=== PATIENT | female | born 1950 | race Asian ===

== ENCOUNTER 2025-04-10 15:46 | Inpatient (IN) | payer OTHER ==
[2025-04-10] VITALS (12 sets, daily range): BP systolic 105–156; BP diastolic 55–68; PULSE 48–81; RESP 24–25; TEMP 93.6–94.8; O2SAT 89–100
[~2025-04-10] VITALS: Ht 160 cm; Wt 65.8 kg
[~2025-04-10 15:46] MED LIST: AMLO10TA55 PO; APIX2.5T PO; ASPI-1450 PO; ERGO500093 PO; HEPARIN SODIUM,PORCINE 1,000 UNITS/ML VIAL ONE; HYDR100T15 PO; LABE200T58 PO; OMEP-148 PO; SEVE800T7 PO; SIMV-261 PO; SODI5POW3 PO; SODI650T33 PO
[2025-04-10] MEDS ORDERED: GLIP-300 PO (15:55)
[2025-04-10] MEDS ORDERED: ATOR40TA71 PO (15:55)
[2025-04-10] MEDS ORDERED: LABE300T80 PO (15:55)
[2025-04-10] MEDS ORDERED: NIFE-78 PO (15:55)
[2025-04-10] MEDS ORDERED: NIFE-129 PO (15:55)
[2025-04-10] MEDS ORDERED: FURO20TA4 PO (15:55)
[2025-04-10] MEDS ORDERED: SODI650T PO (15:55)
[2025-04-10] MEDS ORDERED: GABA-529 PO (15:55)
[2025-04-10] MEDS ORDERED: SODI15OR PO (15:55)
[2025-04-10] MEDS ORDERED: SIMV-46 PO (15:55)
[2025-04-10] MEDS ORDERED: SEVE800T27 PO (15:55)
[2025-04-10 16:43] LABS: PLATELET COUNT (AUTO) 185 K/uL (150-450); RED BLOOD CELL COUNT(AUTO) 2.95 MIL/uL (4.00-5.20); RED CELL DISTRIBUTION WIDTH 15.3 % (11.5-14.5); WHITE BLOOD COUNT (AUTO) 4.6 K/uL (4.5-11.0)
[2025-04-10 16:56] LABS: ASPARTATE AMINOTRANSFERASE 14 U/L (15-37); CALCIUM, TOTAL 8.5 mg/dL (8.8-10.5); CREATINE KINASE, TOTAL ONLY 109 U/L (26-192); CREATININE 4.76 mg/dL (0.60-1.30); GLOMERULAR FILTR. RATE CALC 9 mL/min (>60); GLUCOSE,RANDOM 261 mg/dL (70-110); TOTAL PROTEIN, SERUM 6.4 g/dL (6.4-8.2); UREA NITROGEN, BLOOD 57 mg/dL (7-18)
[2025-04-10] MEDS: DOPamine 400MG/D5W[STANDARD] 250 ML IV PRN (17:03)
[2025-04-10] MEDS: SODIUM CHLORIDE 0.9% 1,000 ML IV ONE (17:03)
[2025-04-10 17:04] LABS: SODIUM SERUM 143 mmol/L (136-145); TROPONIN I-HIGH SENSITIVITY 12 ng/L (<51)
[2025-04-10 17:04] LABS: APPEARANCE,URINE CLEAR (CLEAR); GLUCOSE, URINE (UA) 300-500 mg/dL (NEGATIVE); LEUKOCYTE ESTERASE ,URINE NEGATIVE (NEGATIVE); NITRATE,URINE NEGATIVE (NEGATIVE); OCCULT BLOOD,URINE NEGATIVE (NEGATIVE); SPECIFIC GRAVITIY, URINE 1.014 (1.003-1.030)
[2025-04-10] MEDS: PROPOFOL 1000 MG/ISO-OSM 100 ML IV PRN (17:04)
[2025-04-10] MEDS: AMPICILLIN SODIUM/SULBACTAM NA 3 GM in SODIUM CHLORIDE 0.9% 100 ML IV ONE (17:05)
[2025-04-10 17:07] LABS: LACTIC ACID 1.9 mmol/L (0.4-2.0)
[2025-04-10 17:16] LABS: SULFOSALICYLIC ACID,URINE 1+ (Negative)
[2025-04-10 17:17] LABS: AMORPHOUS SEDIMENT,UR Few /LPF (None Seen); SQUAMOUS EPITHELIAL CELL,UR Few /LPF (None Seen)
[2025-04-10] MEDS: DEXTROSE 50%-WATER 25 GM/50 ML SYRINGE IVP ONE (17:21)
[2025-04-10] MEDS: INSULIN REGULAR, HUMAN 100 UNITS/ML IVP ONE (17:21)
[2025-04-10] MEDS ORDERED: NOREPINEPHRINE 8 MG/0.9 % NACL 250 ML IV PRN (17:30)
[2025-04-10 17:37] LABS: ABG A-A DIFF O2 461.9 mmHg (10-20.0); ABG BASE EXCESS -14.2 mmol/L (-2.0-3.0); ABG CARBOXYHEMOGLOBIN 0.6 % (0.5-1.5); ABG HCO3 14.1 mmol/L (21.0-28.0); ABG METHEMOGLOBIN 1.3 % (0.0-1.5); ABG OXYGEN CONTENT 11.4 mL/dL (15.0-23.0); ABG OXYGEN SATURATION 99.5 % (94.0-98.0); ABG OXYHEMOGLOBIN 97.6 % (94.0-98.0); ABG PCO2 29 mmHg (32.0-45.0); ABG PH 7.261 (7.350-7.450); ABG TOTAL HEMOGLOBIN 7.9 G/dL (12.0-16.0); FRACTIONATED INSPIRED OXYGEN 100.0 % (21-100.0); O2 DEVICE,BLOOD GAS VENTILATOR (ROOM AIR); PATIENT RATE, BG 25.0 min.; PEEP,BG 5 cm H2O; PO2, ARTERIAL BG 224.5 mmHg (83.0-108.0); SET RATE, BG 24.0 min.; SITE, BLOOD GAS RT BRACHIAL; SOURCE, BLOOD GAS ARTERIAL; TEMPERATURE, FAHRENHEIT, BG 96.6 FAHREN (96.0-98.6); VT, ABG 350 ml
[2025-04-10] MEDS: FentaNYL CIT 1000MCG/0.9% NACL 100 ML IV PRN (17:44)
[2025-04-10] MEDS: SODIUM ZIRCONIUM CYCLOSILICATE 10 GM POWDER PACKET PO ONE (18:07)
[2025-04-10] MEDS: SODIUM BICARBONATE 75 MEQ in SODIUM CHLORIDE 0.45% 1,000 ML IV SCH (20:05)
[2025-04-10 21:09] LABS: CALCIUM, TOTAL 8.4 mg/dL (8.8-10.5); CREATININE 5.09 mg/dL (0.60-1.30); GLOMERULAR FILTR. RATE CALC 8.0 mL/min (>60); GLUCOSE,RANDOM 213.0 mg/dL (70-110); SODIUM SERUM 141.0 mmol/L (136-145); UREA NITROGEN, BLOOD 59.0 mg/dL (7-18)
[2025-04-10] MEDS ORDERED: MORPHINE SULFATE 4 MG/ML SYRINGE IVP PRN (22:00)
[2025-04-10] MEDS ORDERED: ALBUTEROL SULFATE 2.5 MG/0.5 ML NEB SOLUTION NEB PRN (22:00)
[2025-04-10] MEDS ORDERED: GLUCAGON,HUMAN RECOMBINANT 1 MG VIAL IM PRN (22:00)
[2025-04-10] MEDS ORDERED: DEXTROSE 50%-WATER 25 GM/50 ML SYRINGE IVP PRN (22:30)
[2025-04-11] VITALS (24 sets, daily range): BP systolic 125–177; BP diastolic 66–109; PULSE 76–134; RESP 24–39; TEMP 95.3–101.1; O2SAT 24–100
[2025-04-11] MEDS: HEPARIN SODIUM,PORCINE 5,000 UNITS/ML VIAL SQ SCH (00:20)
[2025-04-11 00:49] LABS: GLOMERULAR FILTR. RATE CALC 19.0 mL/min (>60); SODIUM SERUM 142.0 mmol/L (136-145)
[2025-04-11 00:59] LABS: CALCIUM, TOTAL 8.3 mg/dL (8.8-10.5); CREATININE 2.5 mg/dL (0.60-1.30); GLUCOSE,RANDOM 145.0 mg/dL (70-110); UREA NITROGEN, BLOOD 27.0 mg/dL (7-18)
[2025-04-11 06:04] LABS: PLATELET COUNT (AUTO) 164 K/uL (150-450); RED BLOOD CELL COUNT(AUTO) 2.68 MIL/uL (4.00-5.20); RED CELL DISTRIBUTION WIDTH 14.2 % (11.5-14.5); WHITE BLOOD COUNT (AUTO) 6.8 K/uL (4.5-11.0)
[2025-04-11 06:20] LABS: CALCIUM, TOTAL 7.7 mg/dL (8.8-10.5); CREATININE 3.02 mg/dL (0.60-1.30); GLOMERULAR FILTR. RATE CALC 15.0 mL/min (>60); GLUCOSE,RANDOM 79.0 mg/dL (70-110); SODIUM SERUM 141.0 mmol/L (136-145); UREA NITROGEN, BLOOD 28.0 mg/dL (7-18)
[2025-04-11 06:23] LABS: PHOSPHORUS 4.2 mg/dL (2.5-4.9)
[2025-04-11 07:00] LABS: GLUCOMETER DEV NAME(LOC) ICU.S7; GLUCOSE,POINT OF CARE 67 MG/DL (70-110)
[2025-04-11] MEDS: PANTOPRAZOLE SODIUM 40 MG/VIAL IVP SCH (08:15)
[2025-04-11] MEDS: MAGNESIUM HYDROXIDE SUSPENSION 30 ML UDCUP NG PRN (08:15)
[2025-04-11] MEDS: ATORVASTATIN CALCIUM 40 MG TABLET NG SCH (08:15)
[2025-04-11] MEDS: EPOETIN ALFA 10,000 UNITS/ML VIAL SQ SCH (09:22)
[2025-04-11 12:26] LABS: GLUCOMETER DEV NAME(LOC) ICUN.7; GLUCOSE,POINT OF CARE 94 MG/DL (70-110)
[2025-04-11] MEDS: HEPARIN SODIUM,PORCINE 1,000 UNITS/ML VIAL IVCATH PRN ×2 (12:57)
[2025-04-11 13:12] LABS: CALCIUM, TOTAL 8.1 mg/dL (8.8-10.5); CREATININE 1.67 mg/dL (0.60-1.30); GLOMERULAR FILTR. RATE CALC 30.0 mL/min (>60); GLUCOSE,RANDOM 98.0 mg/dL (70-110); SODIUM SERUM 137.0 mmol/L (136-145); UREA NITROGEN, BLOOD 12.0 mg/dL (7-18)
[2025-04-11] MEDS: ACETAMINOPHEN 325 MG TABLET PO PRN (15:05)
[2025-04-11] MEDS: AMIODARONE HCL 150 MG in DEXTROSE 5%-WATER 97 ML IV ONE (18:05)
[2025-04-11] MEDS: AMIODARONE HCL 360 MG in DEXTROSE 5%-WATER 242.8 ML IV ONE (18:32)
[2025-04-11 18:45] LABS: GLUCOMETER DEV NAME(LOC) ICUN.7; GLUCOSE,POINT OF CARE 146 MG/DL (70-110)
[2025-04-11] MEDS: AMIODARONE HCL 540 MG in DEXTROSE 5%-WATER 250 ML IV ONE (22:59)
[2025-04-11 23:01] LABS: GLUCOMETER DEV NAME(LOC) ICUN.7; GLUCOSE,POINT OF CARE 114 MG/DL (70-110)
[2025-04-12] VITALS (16 sets, daily range): BP systolic 128–172; BP diastolic 50–69; PULSE 60–99; RESP 9–32; TEMP 97.8–99.8; O2SAT 77–100
[2025-04-12 05:43] LABS: CALCIUM, TOTAL 7.7 mg/dL (8.8-10.5); CREATININE 2.48 mg/dL (0.60-1.30); GLOMERULAR FILTR. RATE CALC 19.0 mL/min (>60); GLUCOSE,RANDOM 121.0 mg/dL (70-110); SODIUM SERUM 137.0 mmol/L (136-145); UREA NITROGEN, BLOOD 21.0 mg/dL (7-18)
[2025-04-12 05:44] LABS: PLATELET COUNT (AUTO) 149 K/uL (150-450); RED BLOOD CELL COUNT(AUTO) 2.89 MIL/uL (4.00-5.20); RED CELL DISTRIBUTION WIDTH 14.3 % (11.5-14.5); WHITE BLOOD COUNT (AUTO) 10.8 K/uL (4.5-11.0)
[2025-04-12 06:01] LABS: GLUCOMETER DEV NAME(LOC) ICUN.7; GLUCOSE,POINT OF CARE 110 MG/DL (70-110)
[2025-04-12] MEDS: DEXMEDETOMIDINE 400 MCG/NS 100 ML IV PRN (08:20)
[2025-04-12 11:07] LABS: ABG BASE EXCESS -6.3 mmol/L (-2.0-3.0); ABG CARBOXYHEMOGLOBIN 0.3 % (0.5-1.5); ABG HCO3 19.7 mmol/L (21.0-28.0); ABG METHEMOGLOBIN 0.3 % (0.0-1.5); ABG OXYGEN CONTENT 11.5 mL/dL (15.0-23.0); ABG OXYGEN SATURATION 98.4 % (94.0-98.0); ABG OXYHEMOGLOBIN 97.8 % (94.0-98.0); ABG PCO2 35 mmHg (32.0-45.0); ABG PH 7.357 (7.350-7.450); ABG TOTAL HEMOGLOBIN 8.2 G/dL (12.0-16.0); ALLEN TEST, BLOOD GAS Positive; FRACTIONATED INSPIRED OXYGEN 30.0 % (21-100.0); PO2, ARTERIAL BG 124.6 mmHg (83.0-108.0); SITE, BLOOD GAS RT RADIAL; SOURCE, BLOOD GAS ARTERIAL; TEMPERATURE, FAHRENHEIT, BG 97.8 FAHREN (96.0-98.6)
[2025-04-12 11:08] LABS: ABG A-A DIFF O2 49.0 mmHg (10-20.0); O2 DEVICE,BLOOD GAS VENTILATOR (ROOM AIR); PATIENT RATE, BG 14.0 min.; VENT MODE, BG SPONTANEOUS (ROOM AIR)
[2025-04-12 11:09] LABS: CPAP, BG 5 cm H2O; PRESSURE SUPPORT, BG 8 cm H2O; SPONTANEOUS VT, BG 824 ml
[2025-04-12 14:21] LABS: GLUCOMETER DEV NAME(LOC) ICU.S7; GLUCOSE,POINT OF CARE 127 MG/DL (70-110)
[2025-04-12] MEDS: AMIODARONE HCL 750 MG in DEXTROSE 5%-WATER 485 ML IV SCH (16:13)
[2025-04-12 17:35] LABS: GLUCOMETER DEV NAME(LOC) ICUN.7; GLUCOSE,POINT OF CARE 132 MG/DL (70-110)
[2025-04-13] VITALS (10 sets, daily range): BP systolic 142–170; BP diastolic 59–119; PULSE 59–95; RESP 10–26; TEMP 98–100.3; O2SAT 95–100
[2025-04-13 00:45] LABS: GLUCOMETER DEV NAME(LOC) ICUN.7; GLUCOSE,POINT OF CARE 114 MG/DL (70-110)
[2025-04-13 06:45] LABS: GLUCOMETER DEV NAME(LOC) ICU.S7; GLUCOSE,POINT OF CARE 112 MG/DL (70-110)
[2025-04-13 09:26] LABS: PLATELET COUNT (AUTO) 120 K/uL (150-450); RED BLOOD CELL COUNT(AUTO) 2.93 MIL/uL (4.00-5.20); RED CELL DISTRIBUTION WIDTH 14.4 % (11.5-14.5); WHITE BLOOD COUNT (AUTO) 11.1 K/uL (4.5-11.0)
[2025-04-13 09:27] LABS: CALCIUM, TOTAL 7.5 mg/dL (8.8-10.5); CREATININE 3.43 mg/dL (0.60-1.30); GLOMERULAR FILTR. RATE CALC 13.0 mL/min (>60); GLUCOSE,RANDOM 126.0 mg/dL (70-110); SODIUM SERUM 132.0 mmol/L (136-145); UREA NITROGEN, BLOOD 35.0 mg/dL (7-18)
[2025-04-13 09:31] LABS: PHOSPHORUS 5.7 mg/dL (2.5-4.9)
[2025-04-13 09:38] LABS: ABG A-A DIFF O2 59.4 mmHg (10-20.0); ABG BASE EXCESS -4.8 mmol/L (-2.0-3.0); ABG CARBOXYHEMOGLOBIN 0.3 % (0.5-1.5); ABG HCO3 20.7 mmol/L (21.0-28.0); ABG METHEMOGLOBIN 0.1 % (0.0-1.5); ABG OXYGEN CONTENT 11.4 mL/dL (15.0-23.0); ABG OXYGEN SATURATION 97.5 % (94.0-98.0); ABG OXYHEMOGLOBIN 97.1 % (94.0-98.0); ABG PCO2 41 mmHg (32.0-45.0); ABG PH 7.329 (7.350-7.450); ABG TOTAL HEMOGLOBIN 8.2 G/dL (12.0-16.0); ALLEN TEST, BLOOD GAS Positive; FRACTIONATED INSPIRED OXYGEN 30.0 % (21-100.0); O2 DEVICE,BLOOD GAS VENTILATOR (ROOM AIR); PATIENT RATE, BG 12.0 min.; PO2, ARTERIAL BG 106.4 mmHg (83.0-108.0); SITE, BLOOD GAS RT RADIAL; SOURCE, BLOOD GAS ARTERIAL; TEMPERATURE, FAHRENHEIT, BG 98.4 FAHREN (96.0-98.6); VENT MODE, BG CPAP (ROOM AIR)
[2025-04-13 09:39] LABS: CPAP, BG 5 cm H2O; PRESSURE SUPPORT, BG 8 cm H2O; SPONTANEOUS VT, BG 545 ml
[2025-04-13] MEDS: AMIODARONE HCL 200 MG TABLET PO SCH (11:00)
[2025-04-13] MEDS ORDERED: SODIUM CHLORIDE 0.9% 250 ML IV ONE (12:19)
[2025-04-13] MEDS: ACETAMINOPHEN 1000 MG/ISO-OSM 100 ML IV ONE (12:21)
[2025-04-13 13:25] LABS: GLUCOMETER DEV NAME(LOC) ICUN.7; GLUCOSE,POINT OF CARE 137 MG/DL (70-110)
[2025-04-13] MEDS: ONDANSETRON HCL 4 MG/2 ML VIAL IVP PRN (14:14)
[2025-04-13] MEDS: CefTRIAXone 1 GM/DEXTROSE 50 ML IV SCH (14:16)
[2025-04-13] MEDS: AZITHROMYCIN 500 MG/NS 250 ML IV SCH (16:18)
[2025-04-13] MEDS: SEVELAMER CARBONATE 800 MG TABLET PO SCH (16:20)
[2025-04-13 22:31] LABS: GLUCOMETER DEV NAME(LOC) ICU.S7; GLUCOSE,POINT OF CARE 142 MG/DL (70-110)
[2025-04-14] VITALS (15 sets, daily range): BP systolic 160–190; BP diastolic 62–89; PULSE 70–116; RESP 12–24; TEMP 97.2–100.3; O2SAT 95–100
[2025-04-14 00:31] LABS: GLUCOMETER DEV NAME(LOC) ICU.S7; GLUCOSE,POINT OF CARE 131 MG/DL (70-110)
[2025-04-14] MEDS: LABETALOL HCL 5 MG/ML 20 ML VIAL IVP ONE (02:09)
[2025-04-14 05:59] LABS: PLATELET COUNT (AUTO) 167 K/uL (150-450); RED BLOOD CELL COUNT(AUTO) 2.65 MIL/uL (4.00-5.20); RED CELL DISTRIBUTION WIDTH 13.7 % (11.5-14.5); WHITE BLOOD COUNT (AUTO) 8.8 K/uL (4.5-11.0)
[2025-04-14 06:14] LABS: CALCIUM, TOTAL 7.5 mg/dL (8.8-10.5); CREATININE 4.18 mg/dL (0.60-1.30); GLOMERULAR FILTR. RATE CALC 10.0 mL/min (>60); GLUCOSE,RANDOM 130.0 mg/dL (70-110); SODIUM SERUM 133.0 mmol/L (136-145); UREA NITROGEN, BLOOD 43.0 mg/dL (7-18)
[2025-04-14 06:21] LABS: GLUCOMETER DEV NAME(LOC) ICU.S7; GLUCOSE,POINT OF CARE 127 MG/DL (70-110)
[2025-04-14] MEDS ORDERED: SODIUM CHLORIDE 0.9% 1,000 ML ONE (08:47)
[2025-04-14] MEDS ORDERED: HEPARIN SODIUM,PORCINE 5,000 UNITS/ML VIAL IVP PRN ×2 (11:30)
[2025-04-14] MEDS: DIGOXIN 250 MCG/ML 2 ML AMP IVP ONE (11:32)
[2025-04-14] MEDS: HEPARIN SODIUM,PORCINE 5,000 UNITS/ML VIAL IVP ONE (11:35)
[2025-04-14 12:08] LABS: PLATELET COUNT (AUTO) 175 K/uL (150-450); RED BLOOD CELL COUNT(AUTO) 2.89 MIL/uL (4.00-5.20); RED CELL DISTRIBUTION WIDTH 13.8 % (11.5-14.5); WHITE BLOOD COUNT (AUTO) 8.7 K/uL (4.5-11.0)
[2025-04-14] MEDS ORDERED: SODIUM CHLORIDE 0.9% 250 ML IV ONE (12:31)
[2025-04-14] MEDS: HEPARIN SODIUM 25000 UNITS/D5W 250 ML IV PRN (12:34)
[2025-04-14 12:55] LABS: GLUCOMETER DEV NAME(LOC) ICU.S7; GLUCOSE,POINT OF CARE 113 MG/DL (70-110)
[2025-04-14] MEDS: INSULIN LISPRO 100 UNITS/ML SQ PRN (17:29)
[2025-04-14 17:45] LABS: GLUCOMETER DEV NAME(LOC) ICUN.7; GLUCOSE,POINT OF CARE 172 MG/DL (70-110)
[2025-04-15] VITALS (13 sets, daily range): BP systolic 157–180; BP diastolic 57–75; PULSE 65–71; RESP 16–20; TEMP 97–98.6; O2SAT 97–99
[2025-04-15 06:08] LABS: PLATELET COUNT (AUTO) 157 K/uL (150-450); RED BLOOD CELL COUNT(AUTO) 2.52 MIL/uL (4.00-5.20); RED CELL DISTRIBUTION WIDTH 13.7 % (11.5-14.5); WHITE BLOOD COUNT (AUTO) 5.4 K/uL (4.5-11.0)
[2025-04-15 06:11] LABS: GLUCOMETER DEV NAME(LOC) 5S.2E; GLUCOSE,POINT OF CARE 139 MG/DL (70-110)
[2025-04-15] MEDS ORDERED: HEPARIN SODIUM,PORCINE 1,000 UNITS/ML VIAL ONE (12:00)
[2025-04-15 12:31] LABS: GLUCOMETER DEV NAME(LOC) 5S.2E; GLUCOSE,POINT OF CARE 142 MG/DL (70-110)
[2025-04-15 12:31] LABS: GLUCOMETER DEV NAME(LOC) 5S.2E; GLUCOSE,POINT OF CARE 155 MG/DL (70-110)
[2025-04-15] MEDS ORDERED: SODIUM CHLORIDE 0.9% 0 ML ONE (14:45)
[2025-04-15] MEDS: FOLIC ACID/VIT B COMPLEX AND C TABLET PO SCH (18:31)
[2025-04-15] MEDS: SOD FERRIC GLUC COMPLX/SUCROSE 125 MG in SODIUM CHLORIDE 0.9% 100 ML IV SCH (20:57)
[2025-04-16] VITALS (15 sets, daily range): BP systolic 175–195; BP diastolic 60–87; PULSE 71–82; RESP 16–19; TEMP 97.7–99.1; O2SAT 95–97
[2025-04-16] MEDS: BISACODYL 10 MG RECTAL RECTAL SUPPOSITORY PR PRN (04:54)
[2025-04-16 05:45] LABS: GLUCOMETER DEV NAME(LOC) 5N.1D; GLUCOSE,POINT OF CARE 163 MG/DL (70-110)
[2025-04-16 06:01] LABS: GLUCOMETER DEV NAME(LOC) 5S.2E; GLUCOSE,POINT OF CARE 171 MG/DL (70-110)
[2025-04-16 06:14] LABS: PLATELET COUNT (AUTO) 175 K/uL (150-450); RED BLOOD CELL COUNT(AUTO) 3.50 MIL/uL (4.00-5.20); RED CELL DISTRIBUTION WIDTH 14.2 % (11.5-14.5); WHITE BLOOD COUNT (AUTO) 9.4 K/uL (4.5-11.0)
[2025-04-16 07:06] LABS: ASPARTATE AMINOTRANSFERASE 29.0 U/L (15-37); CALCIUM, TOTAL 7.7 mg/dL (8.8-10.5); CREATININE 3.73 mg/dL (0.60-1.30); GLOMERULAR FILTR. RATE CALC 12.0 mL/min (>60); GLUCOSE,RANDOM 166.0 mg/dL (70-110); SODIUM SERUM 131.0 mmol/L (136-145); TOTAL PROTEIN, SERUM 6.4 g/dL (6.4-8.2); UREA NITROGEN, BLOOD 33.0 mg/dL (7-18)
[2025-04-16] MEDS ORDERED: SODIUM CHLORIDE 0.9% 1,000 ML ONE (10:02)
[2025-04-16] MEDS ORDERED: HEPARIN SODIUM,PORCINE 1,000 UNITS/ML VIAL ONE (12:00)
[2025-04-16 14:16] LABS: GLUCOMETER DEV NAME(LOC) 5S.1E; GLUCOSE,POINT OF CARE 166 MG/DL (70-110)
[2025-04-16 14:16] LABS: GLUCOMETER DEV NAME(LOC) 5S.1E; GLUCOSE,POINT OF CARE 128 MG/DL (70-110)
[2025-04-16] MEDS: HEPARIN SODIUM,PORCINE 1,000 UNITS/ML VIAL IVCATH ONE ×2 (15:18)
[2025-04-16 18:35] LABS: GLUCOMETER DEV NAME(LOC) 5S.1E; GLUCOSE,POINT OF CARE 180 MG/DL (70-110)
[2025-04-17] VITALS (9 sets, daily range): BP systolic 159–239; BP diastolic 59–108; PULSE 73–89; RESP 18–19; TEMP 97.7–98.4; O2SAT 96–98
[2025-04-17 06:36] LABS: GLUCOMETER DEV NAME(LOC) 5N.2C; GLUCOSE,POINT OF CARE 136 MG/DL (70-110)
[2025-04-17] MEDS ORDERED: FentaNYL CITRATE PF 100 MCG/2 ML VIAL ONE (08:31)
[2025-04-17] MEDS ORDERED: MIDAZOLAM HCL 2 MG/2 ML VIAL ONE (08:31)
[2025-04-17] MEDS: MIDAZOLAM HCL 2 MG/2 ML VIAL IVP ONE (08:55)
[2025-04-17] MEDS: FentaNYL CITRATE PF 100 MCG/2 ML VIAL IVP ONE (08:55)
[2025-04-17] MEDS: LIDOCAINE 1% 30 ML/SOD BICARB 8.4% 4 ML SQ ONE (08:56)
[2025-04-17] MEDS: HEPARIN SODIUM,PORCINE 1,000 UNITS/ML 10 ML VIAL IVP ONE (09:02)
[2025-04-17 11:56] LABS: GLUCOMETER DEV NAME(LOC) 5S.2E; GLUCOSE,POINT OF CARE 177 MG/DL (70-110)
[2025-04-17 13:15] LABS: GLUCOMETER DEV NAME(LOC) 5N.2C; GLUCOSE,POINT OF CARE 200 MG/DL (70-110)
[2025-04-17] MEDS: AMIODARONE HCL 200 MG TABLET PO SCH (13:41)
[2025-04-17 17:26] LABS: GLUCOMETER DEV NAME(LOC) 5S.1E; GLUCOSE,POINT OF CARE 208 MG/DL (70-110)
[2025-04-18] VITALS (19 sets, daily range): BP systolic 173–197; BP diastolic 60–86; PULSE 72–93; RESP 16–18; TEMP 97.7–98.6; O2SAT 95–99
[2025-04-18 00:36] LABS: GLUCOMETER DEV NAME(LOC) 5N.2C; GLUCOSE,POINT OF CARE 164 MG/DL (70-110)
[2025-04-18 06:04] LABS: PLATELET COUNT (AUTO) 239 K/uL (150-450); RED BLOOD CELL COUNT(AUTO) 3.98 MIL/uL (4.00-5.20); RED CELL DISTRIBUTION WIDTH 14.6 % (11.5-14.5); WHITE BLOOD COUNT (AUTO) 9.0 K/uL (4.5-11.0)
[2025-04-18 06:25] LABS: CALCIUM, TOTAL 7.4 mg/dL (8.8-10.5); CREATININE 3.76 mg/dL (0.60-1.30); GLOMERULAR FILTR. RATE CALC 12.0 mL/min (>60); GLUCOSE,RANDOM 134.0 mg/dL (70-110); SODIUM SERUM 134.0 mmol/L (136-145); UREA NITROGEN, BLOOD 23.0 mg/dL (7-18)
[2025-04-18 07:45] LABS: GLUCOMETER DEV NAME(LOC) 5S.1E; GLUCOSE,POINT OF CARE 141 MG/DL (70-110)
[2025-04-18] MEDS: APIXABAN 2.5 MG TABLET PO SCH (08:27)
[2025-04-18] MEDS ORDERED: HEPARIN SODIUM,PORCINE 1,000 UNITS/ML VIAL ONE (12:00)
[2025-04-18] MEDS ORDERED: SODIUM CHLORIDE 0.9% 2,000 ML ONE (12:26)
[2025-04-18] MEDS: METOPROLOL SUCCINATE 50 MG ER TABLET PO SCH (14:48)
[2025-04-18] MEDS: HEPARIN SODIUM,PORCINE 1,000 UNITS/ML VIAL IVCATH ONE ×2 (15:48)
[2025-04-18 15:51] LABS: GLUCOMETER DEV NAME(LOC) 5N.2C; GLUCOSE,POINT OF CARE 118 MG/DL (70-110)
[2025-04-18 20:31] LABS: GLUCOMETER DEV NAME(LOC) 5N.2C; GLUCOSE,POINT OF CARE 181 MG/DL (70-110)
[2025-04-19 01:29] VITALS: BP 177/69; RESP 19; O2SAT 98
[2025-04-19 03:06] VITALS: BP 178/60; PULSE 68; RESP 17; TEMP 98.8; O2SAT 95
[2025-04-19 06:56] LABS: GLUCOMETER DEV NAME(LOC) 5N.2C; GLUCOSE,POINT OF CARE 118 MG/DL (70-110)
[2025-04-19 08:08] VITALS: BP 180/63; PULSE 72; RESP 18; TEMP 98.1; O2SAT 95
[2025-04-19 09:01] LABS: CALCIUM, TOTAL 7.9 mg/dL (8.8-10.5); CREATININE 3.12 mg/dL (0.60-1.30); GLOMERULAR FILTR. RATE CALC 15.0 mL/min (>60); GLUCOSE,RANDOM 98.0 mg/dL (70-110); SODIUM SERUM 134.0 mmol/L (136-145); UREA NITROGEN, BLOOD 15.0 mg/dL (7-18)
[2025-04-19 11:55] VITALS: BP 189/68; PULSE 67; RESP 16; TEMP 98.6; O2SAT 96
[2025-04-19 15:21] LABS: GLUCOMETER DEV NAME(LOC) 5S.1E; GLUCOSE,POINT OF CARE 236 MG/DL (70-110)
[2025-04-19] MEDS: LOSARTAN POTASSIUM 50 MG TABLET PO SCH (16:05)
[2025-04-19 16:07] VITALS: BP 189/62; PULSE 68; RESP 18; TEMP 98.2; O2SAT 95
[2025-04-19 19:37] VITALS: BP 174/61; PULSE 61; RESP 17; TEMP 97.5; O2SAT 96
[2025-04-19 20:00] LABS: GLUCOMETER DEV NAME(LOC) 5S.1E; GLUCOSE,POINT OF CARE 154 MG/DL (70-110)
[2025-04-19 22:35] LABS: GLUCOMETER DEV NAME(LOC) 5S.1E; GLUCOSE,POINT OF CARE 191 MG/DL (70-110)
[2025-04-20] VITALS (8 sets, daily range): BP systolic 144–171; BP diastolic 51–61; PULSE 56–63; RESP 14–18; TEMP 97.9–98.6; O2SAT 94–96
[2025-04-20 07:07] LABS: PLATELET COUNT (AUTO) 247 K/uL (150-450); RED BLOOD CELL COUNT(AUTO) 3.67 MIL/uL (4.00-5.20); RED CELL DISTRIBUTION WIDTH 14.7 % (11.5-14.5); WHITE BLOOD COUNT (AUTO) 6.9 K/uL (4.5-11.0)
[2025-04-20 07:14] LABS: CALCIUM, TOTAL 7.5 mg/dL (8.8-10.5); CREATININE 4.51 mg/dL (0.60-1.30); GLOMERULAR FILTR. RATE CALC 10.0 mL/min (>60); GLUCOSE,RANDOM 135.0 mg/dL (70-110); SODIUM SERUM 132.0 mmol/L (136-145); UREA NITROGEN, BLOOD 21.0 mg/dL (7-18)
[2025-04-20] MEDS ORDERED: LOSARTAN POTASSIUM 50 MG TABLET PO SCH (09:00)
[2025-04-20] MEDS ORDERED: LABETALOL HCL 5 MG/ML 20 ML VIAL IVP PRN (09:15)
[2025-04-20] MEDS: ISOSORBIDE MONONITRATE 30 MG ER TABLET PO SCH (09:41)
[2025-04-20 12:05] LABS: GLUCOMETER DEV NAME(LOC) 5N.2C; GLUCOSE,POINT OF CARE 131 MG/DL (70-110)
[2025-04-20 12:06] LABS: GLUCOMETER DEV NAME(LOC) 5N.2C; GLUCOSE,POINT OF CARE 226 MG/DL (70-110)
[2025-04-20 17:50] LABS: GLUCOMETER DEV NAME(LOC) 5N.2C; GLUCOSE,POINT OF CARE 255 MG/DL (70-110)
[2025-04-21] VITALS (16 sets, daily range): BP systolic 136–167; BP diastolic 49–76; PULSE 60–78; RESP 16–18; TEMP 97.7–99.1; O2SAT 94–96
[2025-04-21 06:37] LABS: PLATELET COUNT (AUTO) 277 K/uL (150-450); RED BLOOD CELL COUNT(AUTO) 3.77 MIL/uL (4.00-5.20); RED CELL DISTRIBUTION WIDTH 14.5 % (11.5-14.5); WHITE BLOOD COUNT (AUTO) 8.3 K/uL (4.5-11.0)
[2025-04-21 06:41] LABS: CALCIUM, TOTAL 7.3 mg/dL (8.8-10.5); CREATININE 5.63 mg/dL (0.60-1.30); GLOMERULAR FILTR. RATE CALC 7.0 mL/min (>60); GLUCOSE,RANDOM 135.0 mg/dL (70-110); SODIUM SERUM 132.0 mmol/L (136-145); UREA NITROGEN, BLOOD 26.0 mg/dL (7-18)
[2025-04-21] MEDS ORDERED: SODIUM CHLORIDE 0.9% 1,000 ML ONE (10:15)
[2025-04-21 10:41] LABS: GLUCOMETER DEV NAME(LOC) 5S.1E; GLUCOSE,POINT OF CARE 149 MG/DL (70-110)
[2025-04-21] MEDS ORDERED: HEPARIN SODIUM,PORCINE 1,000 UNITS/ML VIAL ONE (12:00)
[2025-04-21 12:45] LABS: GLUCOMETER DEV NAME(LOC) 5N.2C; GLUCOSE,POINT OF CARE 167 MG/DL (70-110)
[2025-04-21 14:56] LABS: COVID AG,FIA SOURCE NASAL SWAB
[2025-04-21 15:38] LABS: SARS-COV2 (COVID) ANTIGEN,FIA Negative (Negative)
[2025-04-21] MEDS: HEPARIN SODIUM,PORCINE 1,000 UNITS/ML VIAL IVCATH ONE ×2 (16:42→16:43)
[2025-04-21 20:05] LABS: GLUCOMETER DEV NAME(LOC) 5S.1E; GLUCOSE,POINT OF CARE 231 MG/DL (70-110)
[2025-04-22 04:27] VITALS: BP 171/62; PULSE 69; RESP 16; TEMP 98.8; O2SAT 95
[2025-04-22 06:30] LABS: GLUCOMETER DEV NAME(LOC) 5S.1E; GLUCOSE,POINT OF CARE 144 MG/DL (70-110)
[2025-04-22 07:32] VITALS: BP 173/60; PULSE 63; RESP 17; TEMP 98.3; O2SAT 97
[2025-04-22 09:30] LABS: GLUCOMETER DEV NAME(LOC) 5N.2C; GLUCOSE,POINT OF CARE 232 MG/DL (70-110)
[2025-04-22 11:18] VITALS: BP 147/53; PULSE 61; RESP 18; TEMP 98.2; O2SAT 98
[2025-04-22 15:33] VITALS: BP 158/59; PULSE 67; RESP 18; TEMP 98.1; O2SAT 98
[2025-04-22 18:36] LABS: GLUCOMETER DEV NAME(LOC) 5N.2C; GLUCOSE,POINT OF CARE 188 MG/DL (70-110)
[2025-04-22 18:36] LABS: GLUCOMETER DEV NAME(LOC) 5N.2C; GLUCOSE,POINT OF CARE 214 MG/DL (70-110)
[2025-04-22 20:50] VITALS: BP 161/59; PULSE 64; RESP 17; TEMP 98; O2SAT 99
[2025-04-22 21:51] LABS: GLUCOMETER DEV NAME(LOC) 5N.2C; GLUCOSE,POINT OF CARE 203 MG/DL (70-110)
[2025-04-22 22:31] VITALS: BP 163/55; PULSE 65; RESP 18; O2SAT 99
[2025-04-23] VITALS (14 sets, daily range): BP systolic 151–178; BP diastolic 52–81; PULSE 61–78; RESP 17–18; TEMP 97.5–98.8; O2SAT 96–100
[2025-04-23] MEDS: LOSARTAN POTASSIUM 50 MG TABLET PO SCH (09:00)
[2025-04-23 09:06] LABS: GLUCOMETER DEV NAME(LOC) 5N.2C; GLUCOSE,POINT OF CARE 141 MG/DL (70-110)
[2025-04-23] MEDS ORDERED: SODIUM CHLORIDE 0.9% 1,000 ML ONE (09:55)
[2025-04-23 13:56] LABS: GLUCOMETER DEV NAME(LOC) 5N.2C; GLUCOSE,POINT OF CARE 210 MG/DL (70-110)
[2025-04-23] MEDS ORDERED: [UNRECOGNIZED DRUG - OTHER] PO SCH (16:00)
[2025-04-23 17:56] LABS: GLUCOMETER DEV NAME(LOC) 5N.2C; GLUCOSE,POINT OF CARE 148 MG/DL (70-110)
[2025-04-23] MEDS: LABETALOL HCL 100 MG TABLET PO ONE (19:10)
[2025-04-23] MEDS: NIFEdipine 90 MG ER TABLET PO ONE (19:10)
[2025-04-23] MEDS: GABAPENTIN 100 MG CAPSULE PO SCH (19:11)
[2025-04-23] MEDS: HEPARIN SODIUM,PORCINE 1,000 UNITS/ML VIAL IVCATH ONE ×2 (19:54)
[2025-04-23] MEDS ORDERED: SODIUM BICARBONATE 650 MG TABLET PO SCH (21:00)
[2025-04-23] MEDS ORDERED: LABETALOL HCL 100 MG TABLET PO SCH (21:00)
[2025-04-23] MEDS ORDERED: SIMVASTATIN 20 MG TABLET PO SCH (21:00)
[2025-04-23] MEDS ORDERED: [UNRECOGNIZED DRUG - OTHER] PO SCH (21:00)
[2025-04-24] MEDS ORDERED: NIFEdipine 90 MG ER TABLET PO SCH (09:00)
[2025-04-24] MEDS ORDERED: FUROSEMIDE 20 MG TABLET PO SCH (09:00)
== END 2025-04-23 20:00 | DRG 208 ==
LOC: EMS 15:46 → EDH 17:33 → ICU 19:00 → 5N 04-14 23:33
PROVIDERS: ADMIT Hospitalist; ATTEND Hospitalist
PROC: 5A1945Z Respiratory Ventilation, 24-96 Consecutive Hours (ICD-10-PCS; principal; 2025-04-10)
PROC: 5A1D70Z Performance of Urinary Filtration, Intermittent, Less than 6 Hours Per Day (ICD-10-PCS; 2025-04-10)
PROC: 0BH17EZ Insertion of Endotracheal Airway into Trachea, Via Natural or Artificial Opening (ICD-10-PCS; 2025-04-10)
PROC: 5A1D70Z Performance of Urinary Filtration, Intermittent, Less than 6 Hours Per Day (ICD-10-PCS; 2025-04-11)
PROC: 5A1D70Z Performance of Urinary Filtration, Intermittent, Less than 6 Hours Per Day (ICD-10-PCS; 2025-04-14)
PROC: 30233N1 Transfusion of Nonautologous Red Blood Cells into Peripheral Vein, Percutaneous Approach (ICD-10-PCS; 2025-04-15)
PROC: 5A1D70Z Performance of Urinary Filtration, Intermittent, Less than 6 Hours Per Day (ICD-10-PCS; 2025-04-16)
PROC: 0JH63XZ Insertion of Tunneled Vascular Access Device into Chest Subcutaneous Tissue and Fascia, Percutaneous Approach (ICD-10-PCS; 2025-04-17)
PROC: 02HV33Z Insertion of Infusion Device into Superior Vena Cava, Percutaneous Approach (ICD-10-PCS; 2025-04-17)
PROC: B5181ZA Fluoroscopy of Superior Vena Cava using Low Osmolar Contrast, Guidance (ICD-10-PCS; 2025-04-17)
PROC: 5A1D70Z Performance of Urinary Filtration, Intermittent, Less than 6 Hours Per Day (ICD-10-PCS; 2025-04-18)
PROC: 5A1D70Z Performance of Urinary Filtration, Intermittent, Less than 6 Hours Per Day (ICD-10-PCS; 2025-04-21)
PROC: 5A1D70Z Performance of Urinary Filtration, Intermittent, Less than 6 Hours Per Day (ICD-10-PCS; 2025-04-23)
DX: J96.00 Acute respiratory failure, unspecified whether with hypoxia or hypercapnia (principal); J18.9 Pneumonia, unspecified organism; N18.6 End stage renal disease; Z99.11 Dependence on respirator [ventilator] status; I12.0 Hypertensive chronic kidney disease with stage 5 chronic kidney disease or end stage renal disease; E87.20 Acidosis, unspecified; D63.1 Anemia in chronic kidney disease; E83.39 Other disorders of phosphorus metabolism; N17.9 Acute kidney failure, unspecified; Z99.2 Dependence on renal dialysis; E11.22 Type 2 diabetes mellitus with diabetic chronic kidney disease; J98.11 Atelectasis; Z79.899 Other long term (current) drug therapy; R00.1 Bradycardia, unspecified; E11.40 Type 2 diabetes mellitus with diabetic neuropathy, unspecified; E87.5 Hyperkalemia; E78.00 Pure hypercholesterolemia, unspecified; I95.9 Hypotension, unspecified; I48.0 Paroxysmal atrial fibrillation; I49.8 Other specified cardiac arrhythmias; N25.0 Renal osteodystrophy; E87.6 Hypokalemia; Z79.84 Long term (current) use of oral hypoglycemic drugs
CPT/HCPCS: 31500; 36245; 36561; 70450; 71045; 71250; 72192; 74150; 76000; 80048; 80053; 80076; 81001; 81002; 82271; 82550; 82805; 82962; 83605; 83735; 83880; 84100; 84443; 84484; 85025; 85610; 85730; 86850; 86900; 86901; 86923; 87040; 87081; 87086; 87340; 90935; 92526; 92610; 92950; 93005; 93306; 93970; 94002; 94003; 94760; 96361; 96365; 96375; 97110; 97140; 97162; 97167; 97530; 97535; 99291; J0131; J0282; J0295; J0360; J0456; J0696; J0885; J1160; J1265; J1644; J1815; J2250; J2405; J2470; J2704; J2916; J3010; J3490; J7030; J7050; J7060; P9016; 36415-L1; 36415-TC